=== PATIENT | female | born 1970 | race Caucasian/White ===

== ENCOUNTER 2018-12-22 21:07 | Inpatient (IN) ==
[2018-12-22 22:04] LABS: Basophils % 0.3 %; Eosinophils % 0.3 %; Hematocrit 50.6 % (35.3-44.9); Immature Granulocytes % 0.7 % (0-4); Lymphocytes # 0.8 K/mcL (0.6-4.6); Lymphocytes % 11.1 %; Mean Corpuscular HGB Conc 29.6 g/dL (31.6-35.5); Mean Corpuscular Hemoglobin 26.6 pg (28.0-33.3); Mean Corpuscular Volume 89.9 fL (83.0-100.0); Mean Platelet Volume 9.9 fL (9.4-12.4); Monocytes # 0.6 K/mcL (0.0-1.3); Monocytes % 8.7 %; Neutrophils # 5.3 K/mcL (1.6-8.9); Platelet Count 154 K/mcL (140-400); Red Blood Count 5.63 M/mcL (3.82-4.97); Red Cell Distribution Width 18.6 % (11.5-14.5); Segmented Neutrophils % 78.9 %; White Blood Count 6.8 K/mcL (4.3-11.1)
[2018-12-22 22:26] LABS: Alanine Aminotransferase 36 Units/L (7-52); Albumin 3.5 g/dL (3.5-5.7); Albumin/Globulin Ratio 1.3 (1.1-2.2); Alkaline Phosphatase 96 Units/L (34-104); Aspartate Amino Transferase 32 Units/L (13-39); BUN/Creatinine Ratio 14 (6-26); Bilirubin,Direct 0.4 mg/dL (0.0-0.2); Bilirubin,Indirect 0.7 mg/dL (0.0-1.2); Bilirubin,Total 1.1 mg/dL (0.3-1.0); Blood Urea Nitrogen 10 mg/dL (6-20); Calcium 8.8 mg/dL (8.6-10.3); Carbon Dioxide 37 mEq/L (23-29); Chloride 89 mEq/L (98-107); Globulin 2.7 g/dL (2.4-3.5); Glucose 99 mg/dL (70-105); Osmolality,Calculated 275 (280-300); Potassium 3.8 mEq/L (3.5-5.1); Sodium 133 mEq/L (136-145); Total Protein 6.2 g/dL (6.4-8.9); eGFR For African Americans > 60 (> 60); eGFR For Non-African Americans > 60 (> 60)
[2018-12-22 22:27] LABS: Troponin I < 0.03 ng/mL (< 0.04)
[2018-12-23] MEDS ORDERED: Isovue-370 500 ML BOTTLE IVP ONE (00:29)
[2018-12-23 00:52] LABS: Bilirubin,Urine Negative (Negative); Blood,Urine Negative (Negative); Clarity,Urine Cloudy (Clear); Color,Urine Yellow (Yellow); Glucose,Urine (UA) Normal (Normal); Ketones,Urine Negative (Negative); Leukocyte Esterase,Urine Negative (Negative); Nitrite,Urine Negative (Negative); PH,Urine 7.5 pH Units (5.0-8.0); Protein,Urine Negative (Neg-Trace); Specific Gravity,Urine 1.005 (1.010-1.025); Urobilinogen,Urine Normal (Normal)
[2018-12-23 00:54] LABS: Bacteria,Urine None Seen per hpf (None-Few); Hyaline Casts,Urine None Seen per lpf (None-Few); RBC,Urine 0-3 per hpf (0-3); Squamous Epithelial Cell,Urine Many per lpf (None-Few); WBC,Urine 0-3 per hpf (0-3)
[2018-12-23] MEDS ORDERED: Perflutren Lipid Microsphere 1.3 ML in 0.9 % Sodium Chloride 8.7 ML IVP ONE (05:15)
[2018-12-23] MEDS ORDERED: diazePAM 10 MG TABLET PO PRN (07:22)
[2018-12-23] MEDS ORDERED: Ondansetron 4 MG/2 ML VIAL IVP PRN (07:36)
[2018-12-23] MEDS ORDERED: Naloxone 0.4 MG/ML INJ IVP PRN (07:36)
[2018-12-23] MEDS ORDERED: Furosemide 40 MG/4 ML VIAL IVP ONE (08:27)
[2018-12-23] MEDS ORDERED: ceFAZolin 3,000 MG in Water for inj. (sterile) 30 ML IVP ONE (09:00)
[2018-12-23] MEDS ORDERED: *HR* Midazolam HCl 2 MG/2 ML VIAL ONE (12:46)
[2018-12-23] MEDS ORDERED: *HR* Etomidate 20 MG/10 ML AMPUL IVP ONE (12:48)
[2018-12-23] MEDS ORDERED: *HR* Succinylcholine 200 MG/10 ML VIAL IVP ONE (12:48)
[2018-12-23] MEDS ORDERED: *HR* Rocuronium Bromide 50 MG/5 ML VIAL ONE (12:49)
[2018-12-23] MEDS ORDERED: Lidocaine 2% Syringe 100 MG/5 ML ONE (12:49)
[2018-12-23] MEDS ORDERED: *HR* FentaNYL (PF) 250 MCG/5 ML VIAL ONE (12:55)
[2018-12-23] MEDS ORDERED: Heparin 1,000 UNITS/500 mL 500 ML ONE (13:20)
[2018-12-23] MEDS ORDERED: Ondansetron 4 MG/2 ML VIAL ONE (13:25)
[2018-12-23] MEDS ORDERED: Dexamethasone 4 MG/ML VIAL ONE (13:25)
[2018-12-23] MEDS ORDERED: Potassium Phosphate 44 MEQ in 0.9 % Sodium Chloride 250 ML IVPB PRN (14:47)
[2018-12-23] MEDS ORDERED: Artificial Tears SOLN 15 ML BOTTLE BOTH EYES PRN (14:47)
[2018-12-23] MEDS: FentaNYL (PF) 1,000 MCG in 0.9 % Sodium Chloride 80 ML IVC SCH ×2 (15:17→20:47)
[2018-12-23 15:33] LABS: ABG Base Excess 10 mEq/L (-2 to 3); ABG HCO3 38 mEq/L (21-27); ABG Oxygen Saturation 89 % (95-98); ABG PCO2 61 mmHg (35-45); ABG PO2 58 mmHg (85-104); ABG TCO2 40 mEq/L (20-26); Blood Gas Modality VC; Blood Gas VT 550 cc
[2018-12-23] MEDS: Pantoprazole 40 MG VIAL IVP SCH (15:34)
[2018-12-23] MEDS: Artificial Tears SOLN 15 ML BOTTLE BOTH EYES SCH ×3 (15:35→23:26)
[2018-12-23] MEDS ORDERED: *HR* Rocuronium Bromide 50 MG/5 ML VIAL IVP ONE (16:39)
[2018-12-23] MEDS: Piperacillin/Tazobactam 3.375 GM in 0.9 % Sodium Chloride Mini Bag 100 ML IVPB SCH ×2 (17:27→23:18)
[2018-12-23] MEDS ORDERED: Ipratropium/Albuterol Neb 3 ML IH ONE (18:18)
[2018-12-23] MEDS: *HR* Heparin 5,000 UNIT/ML VIAL SQ SCH (18:18)
[2018-12-23] MEDS: Ipratropium/Albuterol Neb 3 ML IH SCH ×3 (18:35→22:13)
[2018-12-23] MEDS ORDERED: methylPREDNISolone 125 MG/2 ML VIAL IVP ONE (18:41)
[2018-12-23] MEDS: Budesonide/Formoterol 160/4.5 1 PUFF INH IH SCH (19:48)
[2018-12-23] MEDS: Chlorhexidine Rinse 15 ML MOUTHWASH MM SCH (19:54)
[2018-12-24] MEDS: Ipratropium/Albuterol Neb 3 ML IH SCH ×11 (00:07→23:34)
[2018-12-24 00:22] LABS: ABG Base Excess 5 mEq/L (-2 to 3); ABG HCO3 31 mEq/L (21-27); ABG Oxygen Saturation 96 % (95-98); ABG PCO2 45 mmHg (35-45); ABG PH 7.44 pH Units (7.32-7.45); ABG PO2 79 mmHg (85-104); ABG TCO2 32 mEq/L (20-26); Blood Gas Modality ASSIST CONTROL; Blood Gas VT 550 cc
[2018-12-24] MEDS: FentaNYL (PF) 1,000 MCG in 0.9 % Sodium Chloride 80 ML IVC SCH ×2 (03:30→09:44)
[2018-12-24] MEDS: Artificial Tears SOLN 15 ML BOTTLE BOTH EYES SCH ×5 (03:30→19:47)
[2018-12-24 04:36] LABS: ABG Base Excess 8 mEq/L (-2 to 3); ABG HCO3 33 mEq/L (21-27); ABG Oxygen Saturation 96 % (95-98); ABG PCO2 46 mmHg (35-45); ABG PH 7.47 pH Units (7.32-7.45); ABG PO2 78 mmHg (85-104); ABG TCO2 34 mEq/L (20-26); Blood Gas Modality ASSIST CONTROL; Blood Gas VT 550 cc
[2018-12-24 04:38] LABS: Basophils % 0.1 %; Hematocrit 50.5 % (35.3-44.9); Hemoglobin 14.9 g/dL (11.5-15.4); Immature Granulocytes % 0.6 % (0-4); Lymphocytes # 0.3 K/mcL (0.6-4.6); Lymphocytes % 3.4 %; Mean Corpuscular HGB Conc 29.5 g/dL (31.6-35.5); Mean Corpuscular Hemoglobin 26.6 pg (28.0-33.3); Mean Platelet Volume 10.4 fL (9.4-12.4); Monocytes # 0.4 K/mcL (0.0-1.3); Neutrophils # 9.1 K/mcL (1.6-8.9); Platelet Count 172 K/mcL (140-400); Red Blood Count 5.61 M/mcL (3.82-4.97); Red Cell Distribution Width 18.6 % (11.5-14.5); Segmented Neutrophils % 91.9 %; White Blood Count 9.9 K/mcL (4.3-11.1)
[2018-12-24 04:41] LABS: VBG Ionized Calcium 0.99 mmol/L (1.15-1.35)
[2018-12-24 04:56] LABS: BUN/Creatinine Ratio 16 (6-26); Blood Urea Nitrogen 13 mg/dL (6-20); Calcium 8.8 mg/dL (8.6-10.3); Carbon Dioxide 31 mEq/L (23-29); Chloride 92 mEq/L (98-107); Glucose 143 mg/dL (70-105); Magnesium 1.9 mg/dL (1.6-2.6); Osmolality,Calculated 285 (280-300); Potassium 3.4 mEq/L (3.5-5.1); Sodium 136 mEq/L (136-145); eGFR For African Americans > 60 (> 60); eGFR For Non-African Americans > 60 (> 60)
[2018-12-24] MEDS: *HR* Heparin 5,000 UNIT/ML VIAL SQ SCH ×2 (05:17→17:22)
[2018-12-24] MEDS: Calcium Gluconate 1gm/50mL 1 GM/50 ML BAG IVPB PRN ×2 (06:40→22:41)
[2018-12-24] MEDS: Budesonide/Formoterol 160/4.5 1 PUFF INH IH SCH ×2 (07:25→19:34)
[2018-12-24] MEDS: Pantoprazole 40 MG VIAL IVP SCH (07:35)
[2018-12-24] MEDS: Chlorhexidine Rinse 15 ML MOUTHWASH MM SCH ×2 (07:35→19:47)
[2018-12-24] MEDS: Piperacillin/Tazobactam 3.375 GM in 0.9 % Sodium Chloride Mini Bag 100 ML IVPB SCH ×2 (07:35→15:45)
[2018-12-24] MEDS: MethylPREDNISolone 40 MG/ML VIAL IVP SCH ×2 (09:44→15:45)
[2018-12-24 21:39] LABS: VBG Ionized Calcium 1.03 mmol/L (1.15-1.35)
[2018-12-25] MEDS: MethylPREDNISolone 40 MG/ML VIAL IVP SCH ×4 (00:57→23:42)
[2018-12-25] MEDS: Piperacillin/Tazobactam 3.375 GM in 0.9 % Sodium Chloride Mini Bag 100 ML IVPB SCH ×4 (00:57→23:42)
[2018-12-25] MEDS: Artificial Tears SOLN 15 ML BOTTLE BOTH EYES SCH ×7 (00:58→23:43)
[2018-12-25] MEDS: Ipratropium/Albuterol Neb 3 ML IH SCH ×6 (03:25→23:25)
[2018-12-25 04:52] LABS: VBG Ionized Calcium 0.99 mmol/L (1.15-1.35)
[2018-12-25 05:02] LABS: ABG Base Excess 10 mEq/L (-2 to 3); ABG HCO3 33 mEq/L (21-27); ABG Oxygen Saturation 95 % (95-98); ABG PCO2 40 mmHg (35-45); ABG PH 7.53 pH Units (7.32-7.45); ABG PO2 69 mmHg (85-104); ABG TCO2 34 mEq/L (20-26); Blood Gas Modality AF; Blood Gas VT 550 cc
[2018-12-25 05:11] LABS: Phosphorous 3.5 mg/dL (2.7-4.5)
[2018-12-25 05:13] LABS: Blood Urea Nitrogen 20 mg/dL (6-20); Calcium 8.8 mg/dL (8.6-10.3); Carbon Dioxide 31 mEq/L (23-29); Chloride 92 mEq/L (98-107); Glucose 123 mg/dL (70-105); Osmolality,Calculated 280 (280-300); Sodium 133 mEq/L (136-145)
[2018-12-25] MEDS ORDERED: Calcium Gluconate 1gm/50mL 1 GM/50 ML BAG IVPB PRN (05:25)
[2018-12-25 05:30] LABS: BUN/Creatinine Ratio 27 (6-26); eGFR For African Americans > 60 (> 60); eGFR For Non-African Americans > 60 (> 60)
[2018-12-25 05:56] LABS: Basophils % 0.1 %; Hematocrit 43.8 % (35.3-44.9); Hemoglobin 13.5 g/dL (11.5-15.4); Immature Granulocytes % 0.5 % (0-4); Lymphocytes # 0.5 K/mcL (0.6-4.6); Lymphocytes % 4.1 %; Mean Corpuscular HGB Conc 30.8 g/dL (31.6-35.5); Mean Corpuscular Hemoglobin 26.1 pg (28.0-33.3); Mean Corpuscular Volume 84.7 fL (83.0-100.0); Mean Platelet Volume 10.5 fL (9.4-12.4); Monocytes # 0.5 K/mcL (0.0-1.3); Monocytes % 4.3 %; Neutrophils # 10.5 K/mcL (1.6-8.9); Platelet Count 167 K/mcL (140-400); Red Blood Count 5.17 M/mcL (3.82-4.97); Red Cell Distribution Width 18.6 % (11.5-14.5); White Blood Count 11.5 K/mcL (4.3-11.1)
[2018-12-25] MEDS: *HR* Heparin 5,000 UNIT/ML VIAL SQ SCH ×3 (06:09→21:03)
[2018-12-25] MEDS: Calcium Gluconate 1gm/50mL 1 GM/50 ML BAG IVPB SCH ×2 (06:13→06:42)
[2018-12-25] MEDS: Budesonide/Formoterol 160/4.5 1 PUFF INH IH SCH ×2 (07:16→19:39)
[2018-12-25] MEDS: Chlorhexidine Rinse 15 ML MOUTHWASH MM SCH ×2 (07:29→19:26)
[2018-12-25] MEDS: Pantoprazole 40 MG VIAL IVP SCH (07:29)
[2018-12-25] MEDS ORDERED: Furosemide 20 MG/2 ML VIAL IVP ONE (07:59)
[2018-12-25 08:00] LABS: ABG Base Excess 9 mEq/L (-2 to 3); ABG HCO3 34 mEq/L (21-27); ABG Oxygen Saturation 95 % (95-98); ABG PCO2 48 mmHg (35-45); ABG PH 7.46 pH Units (7.32-7.45); ABG PO2 74 mmHg (85-104); ABG TCO2 36 mEq/L (20-26); Blood Gas Modality ASSIST CONTROL; Blood Gas VT 480 cc
[2018-12-25 09:17] LABS: Adenovirus Not Detected (Not Detect); Bordetella Pertussis Not Detected (Not Detect); Chlamydophila pneumoniae Not Detected (Not Detect); Coronavirus 229E Not Detected (Not Detect); Coronavirus HKU1 Not Detected (Not Detect); Coronavirus NL63 Not Detected (Not Detect); Coronavirus OC43 Not Detected (Not Detect); Human Metapneumovirus Not Detected (Not Detect); Human Rhinovirus/Enterovirus Not Detected (Not Detect); Influenza A Subtype 2009 H1 Not Detected (Not Detect); Influenza B Not Detected (Not Detect); Mycoplasma pneumoniae Not Detected (Not Detect); Parainfluenza Virus 1 Not Detected (Not Detect); Parainfluenza Virus 2 Not Detected (Not Detect); Parainfluenza Virus 3 Not Detected (Not Detect); Parainfluenza Virus 4 Not Detected (Not Detect); Respiratory Syncytial Virus Not Detected (Not Detect)
[2018-12-25 10:22] LABS: Complement C3 78 mg/dL (87-200)
[2018-12-25 14:05] LABS: BUN/Creatinine Ratio 27 (6-26); Blood Urea Nitrogen 20 mg/dL (6-20); Calcium 8.9 mg/dL (8.6-10.3); Carbon Dioxide 34 mEq/L (23-29); Chloride 92 mEq/L (98-107); Glucose 128 mg/dL (70-105); Osmolality,Calculated 282 (280-300); Potassium 3.7 mEq/L (3.5-5.1); Sodium 134 mEq/L (136-145); eGFR For African Americans > 60 (> 60); eGFR For Non-African Americans > 60 (> 60)
[2018-12-25 14:20] LABS: ANA IgG by ELISA DETECTED (None Detected)
[2018-12-25] MEDS ORDERED: Potassium Chloride Elixir 20 MEQ/15 ML UDC PO ONE (17:25)
[2018-12-26] MEDS: Ipratropium/Albuterol Neb 3 ML IH SCH ×6 (03:12→23:54)
[2018-12-26] MEDS: Artificial Tears SOLN 15 ML BOTTLE BOTH EYES SCH ×6 (04:36→23:04)
[2018-12-26 04:49] LABS: ABG Base Excess 8 mEq/L (-2 to 3); ABG HCO3 33 mEq/L (21-27); ABG Oxygen Saturation 91 % (95-98); ABG PCO2 44 mmHg (35-45); ABG PH 7.48 pH Units (7.32-7.45); ABG PO2 57 mmHg (85-104); ABG TCO2 34 mEq/L (20-26); Blood Gas Modality AF; Blood Gas VT 480 cc
[2018-12-26 04:56] LABS: Basophils % 0.1 %; Eosinophils % 0.1 %; Hematocrit 43.9 % (35.3-44.9); Hemoglobin 13.1 g/dL (11.5-15.4); Immature Granulocytes % 0.4 % (0-4); Lymphocytes # 0.3 K/mcL (0.6-4.6); Lymphocytes % 2.4 %; Mean Corpuscular HGB Conc 29.8 g/dL (31.6-35.5); Mean Corpuscular Hemoglobin 26.6 pg (28.0-33.3); Mean Platelet Volume 10.6 fL (9.4-12.4); Monocytes # 0.4 K/mcL (0.0-1.3); Monocytes % 4.3 %; Neutrophils # 9.5 K/mcL (1.6-8.9); Platelet Count 162 K/mcL (140-400); Red Blood Count 4.93 M/mcL (3.82-4.97); Red Cell Distribution Width 18.6 % (11.5-14.5); Segmented Neutrophils % 92.7 %; White Blood Count 10.3 K/mcL (4.3-11.1)
[2018-12-26] MEDS: *HR* Heparin 5,000 UNIT/ML VIAL SQ SCH ×3 (05:11→20:20)
[2018-12-26 05:15] LABS: BUN/Creatinine Ratio 45 (6-26); Blood Urea Nitrogen 33 mg/dL (6-20); Calcium 8.9 mg/dL (8.6-10.3); Carbon Dioxide 32 mEq/L (23-29); Chloride 93 mEq/L (98-107); Glucose 169 mg/dL (70-105); Magnesium 1.9 mg/dL (1.6-2.6); Osmolality,Calculated 287 (280-300); Phosphorous 4.6 mg/dL (2.7-4.5); Sodium 133 mEq/L (136-145); eGFR For African Americans > 60 (> 60); eGFR For Non-African Americans > 60 (> 60)
[2018-12-26 05:21] LABS: VBG Ionized Calcium 1.09 mmol/L (1.15-1.35)
[2018-12-26 06:22] LABS: Hepatitis B Surface Antigen Nonreactive (Nonreactive)
[2018-12-26 06:51] LABS: Hepatitis C Virus Antibody Nonreactive (Nonreactive)
[2018-12-26] MEDS ORDERED: Furosemide 40 MG/4 ML VIAL IVP ONE (06:59)
[2018-12-26] MEDS: Budesonide/Formoterol 160/4.5 1 PUFF INH IH SCH ×2 (07:30→19:54)
[2018-12-26] MEDS: Chlorhexidine Rinse 15 ML MOUTHWASH MM SCH ×2 (08:05→20:20)
[2018-12-26] MEDS: Piperacillin/Tazobactam 3.375 GM in 0.9 % Sodium Chloride Mini Bag 100 ML IVPB SCH ×3 (08:05→23:03)
[2018-12-26] MEDS: MethylPREDNISolone 40 MG/ML VIAL IVP SCH ×3 (08:05→23:03)
[2018-12-26] MEDS: Pantoprazole 40 MG VIAL IVP SCH (08:05)
[2018-12-26] MEDS: Dexmedetomidine HCl 400 MCG/100 ML MLS IVC SCH ×4 (10:30→23:03)
[2018-12-26] MEDS ORDERED: *HR* Dextrose 50 % in Water (Syg) 50 ML SYRINGE IVP PRN (12:20)
[2018-12-26] MEDS ORDERED: D5% in Water 1,000 ML IVC PRN (12:20)
[2018-12-26] MEDS: Insulin LISPRO 300 UNITS/3 ML VIAL SQ SCH ×2 (16:36→20:20)
[2018-12-26 19:07] LABS: ANA HEp-2 IgG IFA DETECTED (<1:80)
[2018-12-26 19:08] LABS: Anti Nuclear Ab Pattern SPECKLED
[2018-12-27] MEDS: Insulin LISPRO 300 UNITS/3 ML VIAL SQ SCH ×7 (00:07→23:31)
[2018-12-27] MEDS: Dexmedetomidine HCl 400 MCG/100 ML MLS IVC SCH ×5 (03:03→21:52)
[2018-12-27] MEDS: Ipratropium/Albuterol Neb 3 ML IH SCH ×6 (03:06→23:40)
[2018-12-27] MEDS: Artificial Tears SOLN 15 ML BOTTLE BOTH EYES SCH ×6 (03:12→23:30)
[2018-12-27 04:45] LABS: ABG Base Excess 9 mEq/L (-2 to 3); ABG HCO3 36 mEq/L (21-27); ABG Oxygen Saturation 94 % (95-98); ABG PCO2 56 mmHg (35-45); ABG PH 7.42 pH Units (7.32-7.45); ABG PO2 73 mmHg (85-104); ABG TCO2 38 mEq/L (20-26); Blood Gas Modality AF; Blood Gas VT 480 cc
[2018-12-27] MEDS: *HR* Heparin 5,000 UNIT/ML VIAL SQ SCH ×3 (05:29→19:32)
[2018-12-27 06:06] LABS: Basophils % 0.1 %; Hematocrit 45.7 % (35.3-44.9); Hemoglobin 13.5 g/dL (11.5-15.4); Immature Granulocytes % 0.6 % (0-4); Lymphocytes # 0.3 K/mcL (0.6-4.6); Lymphocytes % 3.4 %; Mean Corpuscular HGB Conc 29.5 g/dL (31.6-35.5); Mean Corpuscular Hemoglobin 26.2 pg (28.0-33.3); Mean Corpuscular Volume 88.7 fL (83.0-100.0); Mean Platelet Volume 10.5 fL (9.4-12.4); Monocytes # 0.5 K/mcL (0.0-1.3); Monocytes % 5.3 %; Neutrophils # 7.9 K/mcL (1.6-8.9); Platelet Count 170 K/mcL (140-400); Red Blood Count 5.15 M/mcL (3.82-4.97); Red Cell Distribution Width 18.4 % (11.5-14.5); Segmented Neutrophils % 90.6 %; White Blood Count 8.7 K/mcL (4.3-11.1)
[2018-12-27 06:24] LABS: BUN/Creatinine Ratio 65 (6-26); Blood Urea Nitrogen 47 mg/dL (6-20); Calcium 8.7 mg/dL (8.6-10.3); Carbon Dioxide 32 mEq/L (23-29); Chloride 95 mEq/L (98-107); Glucose 183 mg/dL (70-105); Magnesium 2.1 mg/dL (1.6-2.6); Osmolality,Calculated 295 (280-300); Phosphorous 3.6 mg/dL (2.7-4.5); Potassium 4.1 mEq/L (3.5-5.1); Sodium 134 mEq/L (136-145); eGFR For African Americans > 60 (> 60); eGFR For Non-African Americans > 60 (> 60)
[2018-12-27] MEDS: MethylPREDNISolone 40 MG/ML VIAL IVP SCH ×3 (07:40→23:30)
[2018-12-27] MEDS: Pantoprazole 40 MG VIAL IVP SCH (07:40)
[2018-12-27] MEDS: Chlorhexidine Rinse 15 ML MOUTHWASH MM SCH ×2 (07:41→19:32)
[2018-12-27] MEDS: Piperacillin/Tazobactam 3.375 GM in 0.9 % Sodium Chloride Mini Bag 100 ML IVPB SCH ×3 (07:41→23:30)
[2018-12-27] MEDS: Budesonide/Formoterol 160/4.5 1 PUFF INH IH SCH ×2 (07:59→19:54)
[2018-12-27] MEDS: Furosemide 40 MG/4 ML VIAL IVP SCH ×2 (11:02→17:13)
[2018-12-28] MEDS: Dexmedetomidine HCl 400 MCG/100 ML MLS IVC SCH ×6 (01:39→22:09)
[2018-12-28] MEDS: Ipratropium/Albuterol Neb 3 ML IH SCH ×6 (03:48→23:46)
[2018-12-28] MEDS: Insulin LISPRO 300 UNITS/3 ML VIAL SQ SCH ×6 (04:15→23:27)
[2018-12-28] MEDS: Artificial Tears SOLN 15 ML BOTTLE BOTH EYES SCH ×6 (04:17→23:27)
[2018-12-28 04:35] LABS: ABG Base Excess 13 mEq/L (-2 to 3); ABG HCO3 39 mEq/L (21-27); ABG Oxygen Saturation 93 % (95-98); ABG PCO2 53 mmHg (35-45); ABG PH 7.48 pH Units (7.32-7.45); ABG PO2 64 mmHg (85-104); ABG TCO2 41 mEq/L (20-26); Blood Gas VT 480 cc
[2018-12-28 04:37] LABS: Basophils % 0.1 %; Hematocrit 46.9 % (35.3-44.9); Hemoglobin 13.8 g/dL (11.5-15.4); Immature Granulocytes % 0.9 % (0-4); Lymphocytes # 0.4 K/mcL (0.6-4.6); Lymphocytes % 5.2 %; Mean Corpuscular HGB Conc 29.4 g/dL (31.6-35.5); Mean Corpuscular Volume 88.5 fL (83.0-100.0); Mean Platelet Volume 10.8 fL (9.4-12.4); Monocytes # 0.5 K/mcL (0.0-1.3); Monocytes % 6.6 %; Neutrophils # 6.7 K/mcL (1.6-8.9); Platelet Count 149 K/mcL (140-400); Red Cell Distribution Width 18.6 % (11.5-14.5); Segmented Neutrophils % 87.2 %; White Blood Count 7.7 K/mcL (4.3-11.1)
[2018-12-28 04:56] LABS: BUN/Creatinine Ratio 59 (6-26); Blood Urea Nitrogen 43 mg/dL (6-20); Carbon Dioxide 36 mEq/L (23-29); Chloride 91 mEq/L (98-107); Glucose 151 mg/dL (70-105); Osmolality,Calculated 300 (280-300); Potassium 3.7 mEq/L (3.5-5.1); Sodium 138 mEq/L (136-145); eGFR For African Americans > 60 (> 60); eGFR For Non-African Americans > 60 (> 60)
[2018-12-28] MEDS: *HR* Heparin 5,000 UNIT/ML VIAL SQ SCH ×3 (06:07→21:07)
[2018-12-28] MEDS: Budesonide/Formoterol 160/4.5 1 PUFF INH IH SCH ×2 (07:20→19:46)
[2018-12-28] MEDS: Piperacillin/Tazobactam 3.375 GM in 0.9 % Sodium Chloride Mini Bag 100 ML IVPB SCH ×3 (08:58→23:26)
[2018-12-28] MEDS: Pantoprazole 40 MG VIAL IVP SCH (08:58)
[2018-12-28] MEDS: Furosemide 40 MG/4 ML VIAL IVP SCH ×2 (08:58→17:21)
[2018-12-28] MEDS: MethylPREDNISolone 40 MG/ML VIAL IVP SCH ×3 (08:58→23:26)
[2018-12-28] MEDS: Chlorhexidine Rinse 15 ML MOUTHWASH MM SCH ×2 (08:59→21:07)
[2018-12-28] MEDS ORDERED: Bisacodyl 10 MG RECTAL SUPPOSITORY RC PRN (10:31)
[2018-12-28] MEDS: Haloperidol Lactate 5 MG/ML VIAL IVP SCH ×3 (13:33→23:26)
[2018-12-29] MEDS ORDERED: MIDAZOLAM HCL IVC SCH (00:21)
[2018-12-29] MEDS ORDERED: SODIUM CHLORIDE 0.9% IVC SCH (00:21)
[2018-12-29] MEDS: Dexmedetomidine HCl 400 MCG/100 ML MLS IVC SCH ×8 (01:07→22:09)
[2018-12-29] MEDS: Artificial Tears SOLN 15 ML BOTTLE BOTH EYES SCH ×6 (03:54→23:27)
[2018-12-29] MEDS: Insulin LISPRO 300 UNITS/3 ML VIAL SQ SCH ×6 (03:54→23:28)
[2018-12-29] MEDS: Ipratropium/Albuterol Neb 3 ML IH SCH ×6 (04:16→23:11)
[2018-12-29] MEDS: *HR* Heparin 5,000 UNIT/ML VIAL SQ SCH ×3 (05:20→20:20)
[2018-12-29] MEDS: Haloperidol Lactate 5 MG/ML VIAL IVP SCH ×4 (05:20→23:28)
[2018-12-29 05:29] LABS: ABG Base Excess 15 mEq/L (-2 to 3); ABG HCO3 40 mEq/L (21-27); ABG Oxygen Saturation 94 % (95-98); ABG PCO2 48 mmHg (35-45); ABG PH 7.53 pH Units (7.32-7.45); ABG PO2 65 mmHg (85-104); ABG TCO2 42 mEq/L (20-26); Blood Gas Modality ASSIST CONTROL; Blood Gas VT 480 cc
[2018-12-29 05:49] LABS: Basophils % 0.3 %; Hematocrit 48.1 % (35.3-44.9); Hemoglobin 14.2 g/dL (11.5-15.4); Immature Granulocytes % 1.2 % (0-4); Lymphocytes # 0.6 K/mcL (0.6-4.6); Lymphocytes % 7.7 %; Mean Corpuscular HGB Conc 29.5 g/dL (31.6-35.5); Mean Corpuscular Hemoglobin 25.8 pg (28.0-33.3); Mean Corpuscular Volume 87.5 fL (83.0-100.0); Mean Platelet Volume 10.7 fL (9.4-12.4); Monocytes # 0.5 K/mcL (0.0-1.3); Monocytes % 6.8 %; Neutrophils # 6.1 K/mcL (1.6-8.9); Platelet Count 176 K/mcL (140-400); Red Cell Distribution Width 18.5 % (11.5-14.5); White Blood Count 7.3 K/mcL (4.3-11.1)
[2018-12-29 06:10] LABS: Alanine Aminotransferase 462 Units/L (7-52); Albumin 3.2 g/dL (3.5-5.7); Alkaline Phosphatase 97 Units/L (34-104); Aspartate Amino Transferase 252 Units/L (13-39); BUN/Creatinine Ratio 50 (6-26); Bilirubin,Total 1.7 mg/dL (0.3-1.0); Blood Urea Nitrogen 41 mg/dL (6-20); Calcium 8.7 mg/dL (8.6-10.3); Carbon Dioxide 38 mEq/L (23-29); Chloride 89 mEq/L (98-107); Globulin 3.1 g/dL (2.4-3.5); Glucose 160 mg/dL (70-105); Osmolality,Calculated 302 (280-300); Phosphorous 3.4 mg/dL (2.7-4.5); Potassium 3.5 mEq/L (3.5-5.1); Sodium 139 mEq/L (136-145); Total Protein 6.3 g/dL (6.4-8.9); eGFR For African Americans > 60 (> 60); eGFR For Non-African Americans > 60 (> 60)
[2018-12-29] MEDS: Midazolam HCl 100 MG in 0.9 % Sodium Chloride 80 ML IVC SCH ×2 (07:34→17:06)
[2018-12-29] MEDS: Budesonide/Formoterol 160/4.5 1 PUFF INH IH SCH ×2 (07:41→19:28)
[2018-12-29] MEDS: Chlorhexidine Rinse 15 ML MOUTHWASH MM SCH ×2 (07:45→20:20)
[2018-12-29] MEDS: Furosemide 40 MG/4 ML VIAL IVP SCH (07:45)
[2018-12-29] MEDS: Pantoprazole 40 MG VIAL IVP SCH (07:45)
[2018-12-29] MEDS: MethylPREDNISolone 40 MG/ML VIAL IVP SCH ×3 (07:45→23:28)
[2018-12-29] MEDS: Piperacillin/Tazobactam 3.375 GM in 0.9 % Sodium Chloride Mini Bag 100 ML IVPB SCH ×3 (07:45→23:29)
[2018-12-29 15:33] LABS: ABG Base Excess 15 mEq/L (-2 to 3); ABG HCO3 41 mEq/L (21-27); ABG Oxygen Saturation 92 % (95-98); ABG PCO2 55 mmHg (35-45); ABG PH 7.48 pH Units (7.32-7.45); ABG PO2 60 mmHg (85-104); ABG TCO2 43 mEq/L (20-26); Blood Gas Modality ASSIST CONTROL; Blood Gas VT 400 cc
[2018-12-29 16:51] LABS: Hepatitis B Core Ab Total NEGATIVE (Negative); Ribonucleic Protein IgG-Sm/RNP 5 AU/mL (0-40); SSA 52 (Anti-RO) Antibody 71 AU/mL (0-40); SSA 60 (Anti-RO) Antibody 39 AU/mL (0-40)
[2018-12-30] MEDS: Midazolam HCl 100 MG in 0.9 % Sodium Chloride 80 ML IVC SCH ×2 (00:12→07:54)
[2018-12-30] MEDS: Dexmedetomidine HCl 400 MCG/100 ML MLS IVC SCH ×8 (01:02→23:25)
[2018-12-30] MEDS: Ipratropium/Albuterol Neb 3 ML IH SCH ×6 (03:30→23:30)
[2018-12-30] MEDS: Insulin LISPRO 300 UNITS/3 ML VIAL SQ SCH ×6 (04:07→23:41)
[2018-12-30] MEDS: Artificial Tears SOLN 15 ML BOTTLE BOTH EYES SCH ×6 (04:07→23:40)
[2018-12-30 04:16] LABS: Basophils % 0.1 %; Hematocrit 48.1 % (35.3-44.9); Hemoglobin 14.1 g/dL (11.5-15.4); Immature Granulocytes % 0.9 % (0-4); Lymphocytes # 0.5 K/mcL (0.6-4.6); Mean Corpuscular HGB Conc 29.3 g/dL (31.6-35.5); Mean Corpuscular Hemoglobin 26.3 pg (28.0-33.3); Mean Corpuscular Volume 89.6 fL (83.0-100.0); Mean Platelet Volume 10.8 fL (9.4-12.4); Monocytes # 0.7 K/mcL (0.0-1.3); Monocytes % 6.7 %; Neutrophils # 9.2 K/mcL (1.6-8.9); Platelet Count 191 K/mcL (140-400); Red Blood Count 5.37 M/mcL (3.82-4.97); Red Cell Distribution Width 18.2 % (11.5-14.5); Segmented Neutrophils % 87.3 %; White Blood Count 10.5 K/mcL (4.3-11.1)
[2018-12-30 04:24] LABS: ABG Base Excess 8 mEq/L (-2 to 3); ABG HCO3 35 mEq/L (21-27); ABG Oxygen Saturation 92 % (95-98); ABG PCO2 56 mmHg (35-45); ABG PO2 64 mmHg (85-104); ABG TCO2 37 mEq/L (20-26); Blood Gas Modality ASSIST CONTROL; Blood Gas VT 400 cc
[2018-12-30 04:33] LABS: BUN/Creatinine Ratio 55 (6-26); Blood Urea Nitrogen 46 mg/dL (6-20); Calcium 9.1 mg/dL (8.6-10.3); Carbon Dioxide 35 mEq/L (23-29); Chloride 94 mEq/L (98-107); Glucose 165 mg/dL (70-105); Osmolality,Calculated 300 (280-300); Potassium 3.7 mEq/L (3.5-5.1); Sodium 137 mEq/L (136-145); eGFR For African Americans > 60 (> 60); eGFR For Non-African Americans > 60 (> 60)
[2018-12-30] MEDS: Haloperidol Lactate 5 MG/ML VIAL IVP SCH ×4 (05:31→23:26)
[2018-12-30] MEDS: *HR* Heparin 5,000 UNIT/ML VIAL SQ SCH ×3 (05:31→20:04)
[2018-12-30] MEDS: Budesonide/Formoterol 160/4.5 1 PUFF INH IH SCH ×2 (07:14→19:26)
[2018-12-30 07:22] LABS: Magnesium 2.3 mg/dL (1.6-2.6); Phosphorous 4.6 mg/dL (2.7-4.5)
[2018-12-30] MEDS: Chlorhexidine Rinse 15 ML MOUTHWASH MM SCH ×2 (07:26→20:04)
[2018-12-30] MEDS: Piperacillin/Tazobactam 3.375 GM in 0.9 % Sodium Chloride Mini Bag 100 ML IVPB SCH ×3 (07:27→23:27)
[2018-12-30] MEDS: Furosemide 40 MG/4 ML VIAL IVP SCH (07:27)
[2018-12-30] MEDS: MethylPREDNISolone 40 MG/ML VIAL IVP SCH ×3 (07:27→23:26)
[2018-12-30] MEDS: Pantoprazole 40 MG VIAL IVP SCH (07:27)
[2018-12-30] MEDS ORDERED: Perflutren Lipid Microsphere 1.3 ML in 0.9 % Sodium Chloride 8.7 ML IVP ONE (08:47)
[2018-12-30] MEDS ORDERED: Potassium Chloride Elixir 20 MEQ/15 ML UDC GTUBE ONE (12:20)
[2018-12-31] MEDS: Midazolam HCl 100 MG in 0.9 % Sodium Chloride 80 ML IVC SCH (00:36)
[2018-12-31] MEDS: Dexmedetomidine HCl 400 MCG/100 ML MLS IVC SCH ×6 (02:45→23:36)
[2018-12-31] MEDS: Ipratropium/Albuterol Neb 3 ML IH SCH ×7 (04:10→23:05)
[2018-12-31] MEDS: Insulin LISPRO 300 UNITS/3 ML VIAL SQ SCH ×6 (04:20→23:09)
[2018-12-31] MEDS: Artificial Tears SOLN 15 ML BOTTLE BOTH EYES SCH ×5 (04:21→18:27)
[2018-12-31 04:52] LABS: ABG Base Excess 4 mEq/L (-2 to 3); ABG HCO3 31 mEq/L (21-27); ABG Oxygen Saturation 93 % (95-98); ABG PCO2 51 mmHg (35-45); ABG PH 7.38 pH Units (7.32-7.45); ABG PO2 69 mmHg (85-104); ABG TCO2 32 mEq/L (20-26); Blood Gas Modality ASSIST CONTROL; Blood Gas VT 400 cc
[2018-12-31] MEDS: Haloperidol Lactate 5 MG/ML VIAL IVP SCH ×4 (05:37→23:37)
[2018-12-31] MEDS: *HR* Heparin 5,000 UNIT/ML VIAL SQ SCH ×3 (05:37→20:17)
[2018-12-31 05:50] LABS: Basophils % 0.2 %; Hematocrit 45.8 % (35.3-44.9); Hemoglobin 13.4 g/dL (11.5-15.4); Lymphocytes # 0.6 K/mcL (0.6-4.6); Lymphocytes % 5.6 %; Mean Corpuscular HGB Conc 29.3 g/dL (31.6-35.5); Mean Corpuscular Hemoglobin 25.8 pg (28.0-33.3); Mean Corpuscular Volume 88.1 fL (83.0-100.0); Mean Platelet Volume 10.5 fL (9.4-12.4); Monocytes # 0.6 K/mcL (0.0-1.3); Monocytes % 6.3 %; Neutrophils # 8.7 K/mcL (1.6-8.9); Platelet Count 177 K/mcL (140-400); Red Cell Distribution Width 18.1 % (11.5-14.5); Segmented Neutrophils % 85.9 %; White Blood Count 10.1 K/mcL (4.3-11.1)
[2018-12-31 06:11] LABS: BUN/Creatinine Ratio 53 (6-26); Blood Urea Nitrogen 45 mg/dL (6-20); Calcium 8.8 mg/dL (8.6-10.3); Carbon Dioxide 29 mEq/L (23-29); Chloride 99 mEq/L (98-107); Glucose 161 mg/dL (70-105); Osmolality,Calculated 297 (280-300); Potassium 3.9 mEq/L (3.5-5.1); Sodium 136 mEq/L (136-145); eGFR For African Americans > 60 (> 60); eGFR For Non-African Americans > 60 (> 60)
[2018-12-31] MEDS: Budesonide/Formoterol 160/4.5 1 PUFF INH IH SCH ×2 (07:22→20:14)
[2018-12-31] MEDS: Chlorhexidine Rinse 15 ML MOUTHWASH MM SCH ×2 (08:16→18:28)
[2018-12-31] MEDS: MethylPREDNISolone 40 MG/ML VIAL IVP SCH (08:16)
[2018-12-31] MEDS: Furosemide 40 MG/4 ML VIAL IVP SCH (08:16)
[2018-12-31] MEDS: Piperacillin/Tazobactam 3.375 GM in 0.9 % Sodium Chloride Mini Bag 100 ML IVPB SCH (08:16)
[2018-12-31] MEDS: Pantoprazole 40 MG VIAL IVP SCH (08:17)
[2018-12-31] MEDS ORDERED: MethylPREDNISolone 40 MG/ML VIAL IVP SCH (20:00)
[2019-01-01] MEDS: Dexmedetomidine HCl 400 MCG/100 ML MLS IVC SCH ×4 (03:03→17:38)
[2019-01-01] MEDS: Ipratropium/Albuterol Neb 3 ML IH SCH ×3 (03:38→07:08)
[2019-01-01] MEDS: Insulin LISPRO 300 UNITS/3 ML VIAL SQ SCH ×2 (03:54→08:46)
[2019-01-01 06:29] LABS: Basophils % 0.2 %; Eosinophils % 0.1 %; Hematocrit 47.8 % (35.3-44.9); Hemoglobin 14.1 g/dL (11.5-15.4); Immature Granulocytes % 1.2 % (0-4); Lymphocytes # 0.7 K/mcL (0.6-4.6); Lymphocytes % 8.2 %; Mean Corpuscular HGB Conc 29.5 g/dL (31.6-35.5); Mean Corpuscular Hemoglobin 25.9 pg (28.0-33.3); Mean Corpuscular Volume 87.9 fL (83.0-100.0); Mean Platelet Volume 11.2 fL (9.4-12.4); Monocytes # 0.6 K/mcL (0.0-1.3); Monocytes % 6.3 %; Neutrophils # 7.6 K/mcL (1.6-8.9); Platelet Count 190 K/mcL (140-400); Red Blood Count 5.44 M/mcL (3.82-4.97)
[2019-01-01] MEDS: Haloperidol Lactate 5 MG/ML VIAL IVP SCH (06:29)
[2019-01-01] MEDS: *HR* Heparin 5,000 UNIT/ML VIAL SQ SCH ×3 (06:29→19:51)
[2019-01-01 06:47] LABS: BUN/Creatinine Ratio 64 (6-26); Blood Urea Nitrogen 45 mg/dL (6-20); Carbon Dioxide 26 mEq/L (23-29); Chloride 102 mEq/L (98-107); Glucose 103 mg/dL (70-105); Osmolality,Calculated 296 (280-300); Potassium 3.7 mEq/L (3.5-5.1); Sodium 137 mEq/L (136-145); eGFR For African Americans > 60 (> 60); eGFR For Non-African Americans > 60 (> 60)
[2019-01-01] MEDS: Budesonide/Formoterol 160/4.5 1 PUFF INH IH SCH ×2 (07:07→22:45)
[2019-01-01] MEDS ORDERED: predniSONE 20 MG TABLET PO SCH (09:00)
[2019-01-01] MEDS: Furosemide 40 MG/4 ML VIAL IVP SCH (09:45)
[2019-01-01] MEDS: Pantoprazole 40 MG VIAL IVP SCH (09:45)
[2019-01-01] MEDS ORDERED: Dextrose Gel 15 GM/37.5 ML TUBE PO PRN ×4 (09:55→14:38)
[2019-01-01] MEDS ORDERED: Haloperidol Lactate 5 MG/ML VIAL IVP PRN (10:00)
[2019-01-01] MEDS ORDERED: Ipratropium/Albuterol Neb 3 ML IH PRN ×2 (10:02→14:38)
[2019-01-01] MEDS ORDERED: Insulin LISPRO 300 UNITS/3 ML VIAL SQ SCH ×2 (11:30→21:00)
[2019-01-01] MEDS ORDERED: clonazePAM 1 MG TABLET PO SCH (12:10)
[2019-01-01] MEDS ORDERED: D5% in Water 1,000 ML IVC PRN (14:38)
[2019-01-01] MEDS ORDERED: *HR* Dextrose 50 % in Water (Syg) 50 ML SYRINGE IVP PRN (14:38)
[2019-01-01] MEDS ORDERED: Bisacodyl 10 MG RECTAL SUPPOSITORY RC PRN (14:38)
[2019-01-01] MEDS ORDERED: Naloxone 0.4 MG/ML INJ IVP PRN (14:38)
[2019-01-01] MEDS ORDERED: Ondansetron 4 MG/2 ML VIAL IVP PRN (14:38)
[2019-01-01 16:54] LABS: Estimated Average Glucose 140 mg/dl
[2019-01-01] MEDS ORDERED: *HR* Heparin 5,000 UNIT/ML VIAL ONE (19:36)
[2019-01-01] MEDS: clonazePAM 1 MG TABLET PO SCH (19:42)
[2019-01-01] MEDS: Haloperidol Lactate 5 MG/ML VIAL IVP PRN (22:18)
[2019-01-02] MEDS: Dexmedetomidine HCl 400 MCG/100 ML MLS IVC SCH (04:56)
[2019-01-02] MEDS: *HR* Heparin 5,000 UNIT/ML VIAL SQ SCH ×3 (06:34→20:19)
[2019-01-02] MEDS: Budesonide/Formoterol 160/4.5 1 PUFF INH IH SCH ×2 (07:57→19:47)
[2019-01-02] MEDS: clonazePAM 1 MG TABLET PO SCH (08:00)
[2019-01-02] MEDS: predniSONE 20 MG TABLET PO SCH (08:01)
[2019-01-02] MEDS: Furosemide 40 MG TABLET PO SCH (08:34)
[2019-01-02] MEDS: diazePAM 10 MG TABLET PO PRN (20:18)
[2019-01-03] MEDS: Haloperidol Lactate 5 MG/ML VIAL IVP PRN (00:37)
[2019-01-03] MEDS: *HR* Heparin 5,000 UNIT/ML VIAL SQ SCH ×3 (05:57→20:05)
[2019-01-03] MEDS: predniSONE 20 MG TABLET PO SCH (07:22)
[2019-01-03] MEDS: Furosemide 40 MG TABLET PO SCH (07:22)
[2019-01-03] MEDS: diazePAM 10 MG TABLET PO PRN (10:17)
[2019-01-03] MEDS: Budesonide/Formoterol 160/4.5 1 PUFF INH IH SCH ×2 (10:41→23:41)
[2019-01-04] MEDS: diazePAM 10 MG TABLET PO PRN ×3 (01:04→20:41)
[2019-01-04 03:52] LABS: Basophils % 0.2 %; Eosinophils # 0.1 K/mcL (0.0-0.6); Hematocrit 48.1 % (35.3-44.9); Hemoglobin 14.9 g/dL (11.5-15.4); Immature Granulocytes % 1.1 % (0-4); Lymphocytes % 10.4 %; Mean Corpuscular Hemoglobin 25.8 pg (28.0-33.3); Mean Corpuscular Volume 83.2 fL (83.0-100.0); Mean Platelet Volume 10.2 fL (9.4-12.4); Monocytes # 0.5 K/mcL (0.0-1.3); Monocytes % 4.7 %; Neutrophils # 8.1 K/mcL (1.6-8.9); Platelet Count 193 K/mcL (140-400); Red Blood Count 5.78 M/mcL (3.82-4.97); Red Cell Distribution Width 18.3 % (11.5-14.5); Segmented Neutrophils % 82.6 %; White Blood Count 9.8 K/mcL (4.3-11.1)
[2019-01-04 04:08] LABS: BUN/Creatinine Ratio 38 (6-26); Blood Urea Nitrogen 24 mg/dL (6-20); Calcium 9.2 mg/dL (8.6-10.3); Carbon Dioxide 27 mEq/L (23-29); Chloride 96 mEq/L (98-107); Glucose 97 mg/dL (70-105); Osmolality,Calculated 284 (280-300); Potassium 2.8 mEq/L (3.5-5.1); Sodium 135 mEq/L (136-145); eGFR For African Americans > 60 (> 60); eGFR For Non-African Americans > 60 (> 60)
[2019-01-04] MEDS: *HR* Heparin 5,000 UNIT/ML VIAL SQ SCH ×3 (06:25→20:41)
[2019-01-04] MEDS: Budesonide/Formoterol 160/4.5 1 PUFF INH IH SCH ×2 (07:31→23:24)
[2019-01-04] MEDS: predniSONE 20 MG TABLET PO SCH (08:08)
[2019-01-04] MEDS: Furosemide 40 MG TABLET PO SCH (08:08)
[2019-01-04 11:02] LABS: Magnesium 1.9 mg/dL (1.6-2.6)
[2019-01-04] MEDS: Metoprolol XL (24 HR) Succ 25 MG TAB.ER.24H PO SCH (15:26)
[2019-01-05] MEDS: *HR* Heparin 5,000 UNIT/ML VIAL SQ SCH ×3 (05:31→21:32)
[2019-01-05 05:54] LABS: Basophils % 0.3 %; Eosinophils # 0.1 K/mcL (0.0-0.6); Hematocrit 50.3 % (35.3-44.9); Hemoglobin 15.2 g/dL (11.5-15.4); Lymphocytes % 13.1 %; Mean Corpuscular HGB Conc 30.2 g/dL (31.6-35.5); Mean Corpuscular Hemoglobin 25.9 pg (28.0-33.3); Mean Corpuscular Volume 85.7 fL (83.0-100.0); Mean Platelet Volume 10.8 fL (9.4-12.4); Monocytes # 0.5 K/mcL (0.0-1.3); Monocytes % 5.9 %; Neutrophils # 6.2 K/mcL (1.6-8.9); Platelet Count 204 K/mcL (140-400); Red Blood Count 5.87 M/mcL (3.82-4.97); Red Cell Distribution Width 18.6 % (11.5-14.5); Segmented Neutrophils % 78.7 %; White Blood Count 7.9 K/mcL (4.3-11.1)
[2019-01-05 06:19] LABS: BUN/Creatinine Ratio 35 (6-26); Blood Urea Nitrogen 22 mg/dL (6-20); Calcium 8.9 mg/dL (8.6-10.3); Carbon Dioxide 24 mEq/L (23-29); Chloride 100 mEq/L (98-107); Glucose 95 mg/dL (70-105); Osmolality,Calculated 283 (280-300); Potassium 3.8 mEq/L (3.5-5.1); Sodium 135 mEq/L (136-145); eGFR For African Americans > 60 (> 60); eGFR For Non-African Americans > 60 (> 60)
[2019-01-05] MEDS: Budesonide/Formoterol 160/4.5 1 PUFF INH IH SCH ×2 (07:28→20:31)
[2019-01-05] MEDS: predniSONE 20 MG TABLET PO SCH (09:08)
[2019-01-05] MEDS: Metoprolol XL (24 HR) Succ 25 MG TAB.ER.24H PO SCH (09:08)
[2019-01-05] MEDS: Furosemide 40 MG TABLET PO SCH ×2 (09:09→16:42)
[2019-01-05] MEDS: diazePAM 10 MG TABLET PO PRN ×2 (14:56→21:32)
[2019-01-06] MEDS ORDERED: Acetaminophen 325 MG TABLET PO PRN (04:54)
[2019-01-06] MEDS: *HR* Heparin 5,000 UNIT/ML VIAL SQ SCH ×3 (05:02→21:08)
[2019-01-06 05:47] LABS: BUN/Creatinine Ratio 32 (6-26); Blood Urea Nitrogen 20 mg/dL (6-20); Calcium 8.7 mg/dL (8.6-10.3); Carbon Dioxide 24 mEq/L (23-29); Chloride 97 mEq/L (98-107); Glucose 87 mg/dL (70-105); Osmolality,Calculated 276 (280-300); Potassium 2.9 mEq/L (3.5-5.1); Sodium 132 mEq/L (136-145); eGFR For African Americans > 60 (> 60); eGFR For Non-African Americans > 60 (> 60)
[2019-01-06 06:06] LABS: Basophils % 0.3 %; Eosinophils # 0.1 K/mcL (0.0-0.6); Eosinophils % 1.4 %; Hematocrit 49.5 % (35.3-44.9); Hemoglobin 15.3 g/dL (11.5-15.4); Immature Platelets 8.5 % (1.1-6.1); Lymphocytes # 1.2 K/mcL (0.6-4.6); Lymphocytes % 16.4 %; Mean Corpuscular HGB Conc 30.9 g/dL (31.6-35.5); Mean Corpuscular Hemoglobin 26.3 pg (28.0-33.3); Mean Corpuscular Volume 85.1 fL (83.0-100.0); Mean Platelet Volume 11.6 fL (9.4-12.4); Monocytes # 0.5 K/mcL (0.0-1.3); Monocytes % 6.3 %; Neutrophils # 5.3 K/mcL (1.6-8.9); Platelet Count 199 K/mcL (140-400); Red Blood Count 5.82 M/mcL (3.82-4.97); Red Cell Distribution Width 18.6 % (11.5-14.5); Segmented Neutrophils % 74.6 %; White Blood Count 7.1 K/mcL (4.3-11.1)
[2019-01-06] MEDS ORDERED: *HR* OxyCODONE Immed Rel 5 MG TABLET PO ONE (06:15)
[2019-01-06] MEDS: Budesonide/Formoterol 160/4.5 1 PUFF INH IH SCH ×2 (07:38→20:10)
[2019-01-06] MEDS: predniSONE 20 MG TABLET PO SCH (08:49)
[2019-01-06] MEDS: Metoprolol XL (24 HR) Succ 25 MG TAB.ER.24H PO SCH (08:50)
[2019-01-06] MEDS: Furosemide 40 MG TABLET PO SCH ×2 (08:51→15:54)
[2019-01-06] MEDS ORDERED: Potassium Chloride Elixir 20 MEQ/15 ML UDC PO SCH (09:00)
[2019-01-06] MEDS: diazePAM 10 MG TABLET PO PRN ×2 (12:53→21:07)
[2019-01-07 02:29] LABS: Basophils % 0.2 %; Eosinophils # 0.1 K/mcL (0.0-0.6); Eosinophils % 0.6 %; Hematocrit 51.6 % (35.3-44.9); Hemoglobin 15.9 g/dL (11.5-15.4); Immature Granulocytes % 1.2 % (0-4); Lymphocytes # 1.3 K/mcL (0.6-4.6); Lymphocytes % 15.5 %; Mean Corpuscular HGB Conc 30.8 g/dL (31.6-35.5); Mean Corpuscular Hemoglobin 25.8 pg (28.0-33.3); Mean Corpuscular Volume 83.8 fL (83.0-100.0); Mean Platelet Volume 10.9 fL (9.4-12.4); Monocytes # 0.4 K/mcL (0.0-1.3); Neutrophils # 6.3 K/mcL (1.6-8.9); Platelet Count 214 K/mcL (140-400); Red Blood Count 6.16 M/mcL (3.82-4.97); Segmented Neutrophils % 77.5 %; White Blood Count 8.2 K/mcL (4.3-11.1)
[2019-01-07 02:50] LABS: BUN/Creatinine Ratio 30 (6-26); Blood Urea Nitrogen 20 mg/dL (6-20); Calcium 9.1 mg/dL (8.6-10.3); Carbon Dioxide 25 mEq/L (23-29); Chloride 96 mEq/L (98-107); Glucose 105 mg/dL (70-105); Osmolality,Calculated 277 (280-300); Potassium 3.7 mEq/L (3.5-5.1); Sodium 132 mEq/L (136-145); eGFR For African Americans > 60 (> 60); eGFR For Non-African Americans > 60 (> 60)
[2019-01-07] MEDS: *HR* Heparin 5,000 UNIT/ML VIAL SQ SCH (06:05)
[2019-01-07 06:39] VITALS: BP 108/77
[2019-01-07] MEDS: Furosemide 40 MG TABLET PO SCH (07:48)
[2019-01-07] MEDS: predniSONE 20 MG TABLET PO SCH (07:48)
[2019-01-07] MEDS ORDERED: Metoprolol XL (24 HR) Succ 25 MG TAB.ER.24H PO SCH (09:00)
[2019-01-07] MEDS: Budesonide/Formoterol 160/4.5 1 PUFF INH IH SCH (11:41)
== END 2019-01-07 12:48 | DRG 163 ==
LOC: 2ANU 21:07 → EMEROOARM 21:07 → 2ANU 12-23 08:15 → SUATTDRO 12-23 10:48 → ICNU 12-23 14:37 → 2NNU 01-01 17:05
PROVIDERS: ADMIT Internal Medicine; ATTEND Internal Medicine